=== PATIENT | male | born 1990 | race Hispanic/Latino ===

== ENCOUNTER 2018-03-02 10:24 | Emergency (ER) | payer SELFPAY ==
[~2018-03-02 10:24] MED LIST: ISOVUE-370 76%-LOCM 1 ML ONE
[2018-03-02] MEDS ORDERED: Adacel (T-DAP) 0.5 ML VIAL ONE (10:32)
[2018-03-02] MEDS ORDERED: CEFAZOLIN/Water 2 GM/20 ML SYRINGE ONE (10:32)
[2018-03-02] MEDS ORDERED: Ketorolac Tromethamine 30 MG/ML VIAL ONE (10:36)
[2018-03-02] MEDS ORDERED: Lidocaine 1% w/Epinephrine 1:100K 20 ML VIAL ONE (10:38)
[2018-03-02 10:50] LABS: #Basophils 0.1 thou/uL (0.0-0.2); #Eosinphils 0.1 thou/uL (0.0-0.7); #Lymphocytes 3.1 thou/uL (1.20-3.40); #Monocytes 0.4 thou/uL (0.11-0.59); #Neutrophils 4.6 thou/uL (1.40-6.50); %Basophils 1.2 % (0.0-1.0); %Eosinophils 0.7 % (0.0-10.0); %Lymphocytes 37.7 % (21.0-51.0); %Monocytes 5.2 % (0.0-10.0); %Neutrophils 55.3 % (42.0-75.0); Hemoglobin 15.1 g/dL (14.0-18.0); Mean Corpuscular Hemoglobin 31.2 pg (27.0-31.0); Mean Corpuscular Volume 94.7 fL (78.0-98.0); Mean Platelet Volume 7.9 fL (7.4-10.4); Platelet Count 209 thou/uL (130-400); RBC Distribution Width 11.6 % (11.5-14.5); Red Blood Cell (RBC) Count 4.85 mill/uL (4.70-6.10); White Blood Cell (WBC) Count 8.3 thou/uL (4.8-10.8)
[2018-03-02 11:12] LABS: ALT (SGPT) 16 U/L (8-55); AST (SGOT) 25 U/L (5-34); Albumin 4.9 g/dL (3.5-5.0); Alkaline Phosphatase 78 U/L (40-150); Anion Gap 20 mmol/L (10-20); BUN (Urea Nitrogen) 12 mg/dL (8.9-20.6); Bilirubin, Total 0.6 mg/dL (0.2-1.2); Calc. Creatinine Clearance 0 mL/min (70-130); Calcium 9.6 mg/dL (7.8-10.44); Carbon Dioxide 17 mmol/L (22-29); Chloride 105 mmol/L (98-107); Estimated GFR-MDRD 80; Glucose 152 mg/dL (70-105); Potassium 3.4 mmol/L (3.5-5.1); Protein, Total 7.9 g/dL (6.0-8.3); Sodium 139 mmol/L (136-145)
[2018-03-02] MEDS ORDERED: Bacitracin Zinc 1 Packet ONE (11:17)
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
== END 2018-03-02 11:57 | disposition home or self-care (01) ==
LOC: ERS 10:24
DX: S21.211A Laceration without foreign body of right back wall of thorax without penetration into thoracic cavity, initial encounter (principal); S01.03XA Puncture wound without foreign body of scalp, initial encounter; S41.112A Laceration without foreign body of left upper arm, initial encounter; F31.9 Bipolar disorder, unspecified; F17.200 Nicotine dependence, unspecified, uncomplicated; Z23 Encounter for immunization; Y04.2XXA Assault by strike against or bumped into by another person, initial encounter
CPT/HCPCS: 71045; 71260; 74177; 80053; 85025; 90471; 90715; 96374; 96375; J1885; J2001

== ENCOUNTER 2018-03-02 18:23 | Emergency (ER) | payer SELFPAY ==
[2018-03-02] MEDS ORDERED: traMADol HCl 50 MG TAB ONE (20:52)
== END 2018-03-02 20:56 | disposition home or self-care (01) ==
LOC: ERS 18:23
DX: S01.01XA Laceration without foreign body of scalp, initial encounter (principal); S21.211A Laceration without foreign body of right back wall of thorax without penetration into thoracic cavity, initial encounter; S41.112A Laceration without foreign body of left upper arm, initial encounter; F31.9 Bipolar disorder, unspecified; Z71.6 Tobacco abuse counseling; Y04.0XXA Assault by unarmed brawl or fight, initial encounter
CPT/HCPCS: 99406

== ENCOUNTER 2018-06-24 08:42 | Emergency (ER) | payer SELFPAY ==
[2018-06-24] MEDS ORDERED: Ibuprofen 200 MG TAB ONE (09:12)
== END 2018-06-24 09:55 | disposition home or self-care (01) ==
LOC: ERS 08:42
DX: J06.9 Acute upper respiratory infection, unspecified (principal); F31.9 Bipolar disorder, unspecified; F17.210 Nicotine dependence, cigarettes, uncomplicated
CPT/HCPCS: 87804; 99283